=== PATIENT | male | born 1990 | race American Indian/Alaskan Native ===

== ENCOUNTER 2021-09-11 22:05 | Emergency (ER) | payer SELFPAY ==
[2021-09-11 22:56] VITALS: BP 126/64
--- NOTE | 2021-09-11 23:28 | XRay Report ---
CHEST 2 VIEWS INDICATION / CLINICAL INFORMATION: chest pain. COMPARISON: None available. FINDINGS: SUPPORT DEVICES: None. HEART / MEDIASTINUM: No significant abnormality. LUNGS / PLEURA: No significant pulmonary abnormality. No significant pleural effusion. No pneumothora x. ADDITIONAL FINDINGS: No significant additional findings. IMPRESSION: 1. No acute abnormality of the chest. Signer Name: Jong Quintero MD Signed: 09/11/2021 11:23 PM Workstation Name: [id number]
--- NOTE | 2021-09-13 17:03 | Electrocardiograph Report ---
[facility] Test Date: 2021-09-11 Test Time: 22:50:45 Pat Name: LIZZETTE WYNN Department: Room: Gender: M [employer]: KARRI : 1990 Requested By: MERLE SANCHEZ Order Number: [id number] Reading MD: aJred Best Measurements Intervals [place] Rate: 69 P: 74 MT: 172 QRS: 87 QRSD: 92 T: 30 QT: 354 QTc: 379 Interpretive Statements Sinus rhythm Left ventricle hypertrophy No previous ECG available for comparison Electronically Signed On 09-13-2021 17:03:02 EDT by Jared Best
== END 2021-09-12 02:55 | disposition left against medical advice (07) ==
LOC: ED 22:05
DX: R07.89 Other chest pain (principal); Z53.21 Procedure and treatment not carried out due to patient leaving prior to being seen by health care provider
CPT/HCPCS: 71046; 93005

== ENCOUNTER 2021-09-28 18:06 | Emergency (ER) | payer OTHER ==
[2021-09-28] MEDS ORDERED: HYDROcodone/ACETAMINOPHEN 5-325 MG TAB PO ONE (19:17)
[2021-09-28] MEDS ORDERED: methylPREDNISolone Sod Succinate 125 MG/2 ML INJ IM ONE (19:17)
[2021-09-28] MEDS ORDERED: CYCLOBENZAPRINE 10 MG TAB PO ONE (19:17)
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
[2021-09-28 23:13] VITALS: BP 110/78
== END 2021-09-28 23:17 | disposition home or self-care (01) ==
LOC: ED 18:06
DX: S16.1XXA Strain of muscle, fascia and tendon at neck level, initial encounter (principal); X58.XXXA Exposure to other specified factors, initial encounter; Y93.89 Activity, other specified; Y92.89 Other specified places as the place of occurrence of the external cause; Y99.8 Other external cause status
CPT/HCPCS: 72125; 96372; 99284; J2930